=== PATIENT | male | born 1995 | race Caucasian/White ===

== ENCOUNTER 2018-08-13 14:52 | Observation (INO) | payer OTHER ==
[~2018-08-13] VITALS: Ht 175.3 cm; Wt 96.8 kg
[2018-08-13] VITALS (7 sets, daily range): BP systolic 121–135; BP diastolic 60–97
--- NOTE | 2018-08-13 15:23 | ER Report ---
History and Physical Time Seen By MD: 15:00 Hx. of Stated Complaint: RLQ PAIN SINCE LAST NIGHT. HPI/ROS CHIEF COMPLAINT: Abdominal pain HISTORY OF PRESENT ILLNESS: Otherwise healthy 23-year-old male comes emergency times a day with 1 day of right lower quadrant pain sharp stabbing localized right at McBurney's point patient is unable to eat he is not hungry's nausea without vomiting denies any upper epigastric discomfort. Patient has no surgical history this time. Patient states the pain is constant sharp and stabbing really no loosening alleviating factors no additional complaints noted REVIEW OF SYSTEMS: Respiratory: No cough, no dyspnea. Cardiovascular: No chest pain, no palpitations. Gastrointestinal: Abdominal pain right lower quadrant nausea no vomiting Musculoskeletal: No back pain. Remainder of the 14 system rev: Yes Allergies: Coded Allergies: amoxicillin (Verified Allergy, Unknown, 08/13/18) Home Meds Unable to Obtain Active Prescriptions or Reported Meds Reviewed Nurses Notes: Yes Old Medical Records Reviewed: Yes Constitutional Vital Sign - Last 24 Hours 08/13/18 14:57 Temp 98.1 Pulse 71 Resp 20 B/P (MAP) 162/84 Pulse Ox 95 O2 Delivery Room Air Physical Exam General Appearance: The patient is alert, has no immediate need for airway protection and no current signs of toxicity. [ ] Eyes: Pupils equal and round no injection. Respiratory: Chest is non tender, lungs are clear to auscultation. Cardiac: regular rate and rhythm [ ] Gastrointestinal: Abdomen tender to right lower quadrant deep palpation positive McBurney sign no rebound or guarding no masses normal bowel sounds Musculoskeletal: Neck: Neck is supple and non tender. Extremities have full range of motion and are non tender. Skin: No rashes or lesions. [ ] DIFFERENTIAL DIAGNOSIS: After history and physical exam differential diagnosis was considered for acute appendicitis antritis gastroenteritis colitis Medical Decision Making Data Points Result Diagram: 08/13/18 1508 08/13/18 1508 Laboratory Hematology Test 08/13/18 15:08 08/13/18 15:15 Red Blood Count 5.58 M/uL (4.00-5.60) Mean Corpuscular Volume 83.3 fL (80.0-96.0) Mean Corpuscular Hemoglobin 28.2 pg (26.0-33.0) Mean Corpuscular Hemoglobin Concent 33.9 g/dL (32.0-36.0) Red Cell Distribution Width 13.2 % (11.5-14.5) Mean Platelet Volume 8.1 fL (7.2-11.1) Neutrophils (%) (Auto) 72.2 % (39.4-72.5) Lymphocytes (%) (Auto) 15.6 % (17.6-49.6) Monocytes (%) (Auto) 9.8 % (4.1-12.4) Eosinophils (%) (Auto) 1.8 % (0.4-6.7) Basophils (%) (Auto) 0.6 % (0.3-1.4) Nucleated RBC Relative Count (auto) 0.0 /100WBC Neutrophils # (Auto) 9.1 K/uL (2.0-7.4) Lymphocytes # (Auto) 2.0 K/uL (1.3-3.6) Monocytes # (Auto) 1.2 K/uL (0.3-1.0) Eosinophils # (Auto) 0.2 K/uL (0.0-0.5) Basophils # (Auto) 0.1 K/uL (0.0-0.1) Nucleated RBC Absolute Count (auto) 0.01 K/uL Prothrombin Time 13.2 seconds (12.0-14.4) Prothromb Time International Ratio 1.00 Activated Partial Thromboplast Time 31 seconds (23-35) Sodium Level 137 mmol/L (137-145) Potassium Level 3.5 mmol/L (3.5-5.0) Chloride Level 103 mmol/L (98-107) Carbon Dioxide Level 22 mmol/L (22-30) Blood Urea Nitrogen 10 mg/dl (9-21) Creatinine 1.10 mg/dl (0.66-1.25) Glomerular Filtration Rate Calc > 60.0 Random Glucose 102 mg/dl (75-110) Calcium Level 9.4 mg/dl (8.4-10.2) Total Bilirubin 0.7 mg/dl (0.2-1.3) Aspartate Amino Transf (AST/SGOT) 28 U/L (0-35) Alanine Aminotransferase (ALT/SGPT) 39 U/L (0-56) Alkaline Phosphatase 102 U/L (0-126) Total Protein 8.3 g/dl (6.3-8.2) Albumin 4.9 g/dl (3.5-5.0) Urine Color Yellow Urine Clarity Clear Urine pH 6.0 pH (4.8-9.5) Urine Specific [place] 1.018 Urine Protein Negative mg/dL (NEGATIVE) Urine Glucose (UA) Negative mg/dL (NEGATIVE) Urine Ketones 20 mg/dL (NEGATIVE) Urine Blood Negative (NEGATIVE) Urine Nitrite Negative (NEGATIVE) Urine Bilirubin Negative (NEGATIVE) Urine Urobilinogen Negative mg/dL (0.2-1.9) Urine Leukocyte Esterase Negative (NEGATIVE) Urine RBC None /HPF (0-2/HPF) Urine WBC <1 /HPF (0-5/HPF) Urine Squamous Epithelial Cells None /LPF (</=FEW) Urine Bacteria Negative /HPF (NONE-FEW) Urine Mucus None /HPF (NONE-FEW) Chemistry Test 08/13/18 15:08 08/13/18 15:15 White Blood Count 12.6 k/uL (4.5-11.0) Red Blood Count 5.58 M/uL (4.00-5.60) Hemoglobin 15.8 g/dL (14.0-18.0) Hematocrit 46.5 % (42.0-52.0) Mean Corpuscular Volume 83.3 fL (80.0-96.0) Mean Corpuscular Hemoglobin 28.2 pg (26.0-33.0) Mean Corpuscular Hemoglobin Concent 33.9 g/dL (32.0-36.0) Red Cell Distribution Width 13.2 % (11.5-14.5) Platelet Count 245 K/uL (150-450) Mean Platelet Volume 8.1 fL (7.2-11.1) Neutrophils (%) (Auto) 72.2 % (39.4-72.5) Lymphocytes (%) (Auto) 15.6 % (17.6-49.6) Monocytes (%) (Auto) 9.8 % (4.1-12.4) Eosinophils (%) (Auto) 1.8 % (0.4-6.7) Basophils (%) (Auto) 0.6 % (0.3-1.4) Nucleated RBC Relative Count (auto) 0.0 /100WBC Neutrophils # (Auto) 9.1 K/uL (2.0-7.4) Lymphocytes # (Auto) 2.0 K/uL (1.3-3.6) Monocytes # (Auto) 1.2 K/uL (0.3-1.0) Eosinophils # (Auto) 0.2 K/uL (0.0-0.5) Basophils # (Auto) 0.1 K/uL (0.0-0.1) Nucleated RBC Absolute Count (auto) 0.01 K/uL Prothrombin Time 13.2 seconds (12.0-14.4) Prothromb Time International Ratio 1.00 Activated Partial Thromboplast Time 31 seconds (23-35) Glomerular Filtration Rate Calc > 60.0 Calcium Level 9.4 mg/dl (8.4-10.2) Total Bilirubin 0.7 mg/dl (0.2-1.3) Aspartate Amino Transf (AST/SGOT) 28 U/L (0-35) Alanine Aminotransferase (ALT/SGPT) 39 U/L (0-56) Alkaline Phosphatase 102 U/L (0-126) Total Protein 8.3 g/dl (6.3-8.2) Albumin 4.9 g/dl (3.5-5.0) Urine Color Yellow Urine Clarity Clear Urine pH 6.0 pH (4.8-9.5) Urine Specific [place] 1.018 Urine Protein Negative mg/dL (NEGATIVE) Urine Glucose (UA) Negative mg/dL (NEGATIVE) Urine Ketones 20 mg/dL (NEGATIVE) Urine Blood Negative (NEGATIVE) Urine Nitrite Negative (NEGATIVE) Urine Bilirubin Negative (NEGATIVE) Urine Urobilinogen Negative mg/dL (0.2-1.9) Urine Leukocyte Esterase Negative (NEGATIVE) Urine RBC None /HPF (0-2/HPF) Urine WBC <1 /HPF (0-5/HPF) Urine Squamous Epithelial Cells None /LPF (</=FEW) Urine Bacteria Negative /HPF (NONE-FEW) Urine Mucus None /HPF (NONE-FEW) Coagulation Test 08/13/18 15:08 Prothrombin Time 13.2 seconds Prothromb Time International Ratio 1.00 Activated Partial Thromboplast Time 31 seconds Urinalysis Test 08/13/18 15:15 Urine Color Yellow Urine Clarity Clear Urine pH 6.0 pH (4.8-9.5) Urine Specific [place] 1.018 Urine Protein Negative mg/dL (NEGATIVE) Urine Glucose (UA) Negative mg/dL (NEGATIVE) Urine Ketones 20 mg/dL (NEGATIVE) Urine Blood Negative (NEGATIVE) Urine Nitrite Negative (NEGATIVE) Urine Bilirubin Negative (NEGATIVE) Urine Urobilinogen Negative mg/dL (0.2-1.9) Urine Leukocyte Esterase Negative (NEGATIVE) Urine RBC None /HPF (0-2/HPF) Urine WBC <1 /HPF (0-5/HPF) Urine Squamous Epithelial Cells None /LPF (</=FEW) Urine Bacteria Negative /HPF (NONE-FEW) Urine Mucus None /HPF (NONE-FEW) ED Course/Re-evaluation ED Course ED course 23-year-old male comes in with acute right lower quadrant pain CT scan confirms acute appendicitis surgical consult performed patient be admitted Decision to Disposition Date: Aug 13, 2018 Decision to Disposition Time: 16:39 Depart Departure Latest Vital Signs Vital Signs Date Time Temp Pulse Resp B/P (MAP) Pulse Ox O2 Delivery O2 Flow Rate FiO2 08/13/18 14:57 98.1 71 20 162/84 95 Room Air Impression: Primary Impression: Acute appendicitis Condition: Improved Disposition: Admitted from ER New Scripts Unable to Obtain Active Prescriptions or Reported Meds HIRAM PAEZ MD Aug 13, 2018 15:23
[2018-08-13 15:26] LABS: PLATELET COUNT, AUTOMATED 245 K/uL (150-450)
[2018-08-13] MEDS ORDERED: IOPAMIDOL 76% 150 ML INFUS BTL 150 ML ONE (15:29)
--- NOTE | 2018-08-13 16:28 | RADIOLOGY IMAGING REPORT ---
FACILITY: [facility] [place] PATIENT NAME: Baltazar Merino : 1995 MR: [id number] V: [id number] EXAM DATE: ORDERING PHYSICIAN: HIRAM PAEZ TECHNOLOGIST: Location: [facility] Patient: Baltazar Merino : 1995 Visit/Account:[id number] Date of Sevice: 08/13/2018 COMPUTED TOMOGRAPHY OF THE Abdomen and Pelvis with CONTRAST INDICATION: Right lower quadrant abdominal pain. TECHNIQUE: Contiguous axial 3.[address] images were obtained through the abdomen and pelvis after 75 m L [id number]. Coronal and sagittal reformatted images were submitted. COMPARISON: None. FINDINGS: Lung bases: The lung bases are clear Liver and hepatic vasculature: No focal lesion. Gallbladder and bile ducts: Normal Spleen: Normal. There are a few small splenules near the splenic hilum. Pancreas: Normal Adrenals: Normal Kidneys, ureters and bladder: Normal kidneys. Decompressed bladder. Retroperitoneum and aorta: Normal GI tract, mesentery and peritoneum: The appendix is markedly dilated measuring 1.6 cm diameter with a thickened and edematous wall. There is moderate surrounding inflammation. A fecalith is present ne ar the appendiceal base. No perforation or abscess. Prostate: Unremarkable Bones and soft tissues: No acute osseous abnormality. IMPRESSION: 1. Appendicitis. The appendix measures 1.6 cm with moderate surrounding inflammation, wall thickeni ng, and an appendicolith near the appendiceal base. No perforation or abscess. Results were called to Dr. HIRAM PAEZ at 08/13/2018 4:10 PM. One of the following dose optimization techniques was utilized in the performance of this exam: Autom ated exposure control; adjustment of the mA and/or kV according to the patient's size; or use of an i terative reconstruction technique. Specific details can be referenced in the facility's radiology C T exam operational policy. Report Dictated By: Vinod Koch MD at 08/13/2018 4:03 PM Report E-Signed By: Vinod Koch MD at 08/13/2018 4:23 PM [id number]
[2018-08-13] MEDS ORDERED: NS(*) 0.9% 1000 ML BAG 1,000 ML IV ONE (16:30)
[2018-08-13] MEDS ORDERED: ONDANSETRON 4 MG/2 ML VIAL IVP ONE (16:30)
--- NOTE | 2018-08-13 17:00 | Gen Surgery History & Physical ---
History of Present Illness Chief Complaint rlq pain History of Present Illness 23 yo m with rlq pain since 1999 last night. pain is worsening. +vomiting. feels hot. no acute blood per rectum. pmh/psh: urology procedure as a child (opened meatus) fam hx: dm, cad, copd social hx: occasional etoh and cigs History Home Meds Unable to Obtain Active Prescriptions or Reported Meds Allergies: Coded Allergies: amoxicillin (Verified Allergy, Unknown, 08/13/18) Review of Systems Constitutional: Other (10 pt ros neg except per hpi) Exam General Appearance: Alert, Awake, No Acute Distress Neuro: No Gross deficits Eyes: Other (per, eomi) ENT: Moist Mucous Membranes Neck: No Masses Cardiovascular: Other Respiratory: No Respiratory Distress GI: Other (soft, rlq ttp) Extremities: Other (no pitting edema) Integumentary: Skin Intact without Lesion / Mass Psych: Alert & Oriented X3, Appropriate Mood & Affect Medical Decision Making Data Points Result Diagram: 08/13/18 1508 08/13/18 1508 Assessment and Plan Problems: (1) Acute appendicitis Status: Acute Assessment & Plan: 08/13/18: npo, abx, lap appy Venous Thromboembolism Antithrombotics Is Pt On Any Antithrombotics?: No TREVON WRIGHT Aug 13, 2018 17:00
[2018-08-13] MEDS ORDERED: BUPIVACAINE/EPI 0.5% 50ML VIAL INFIL ONE (17:14)
[2018-08-13] MEDS ORDERED: NS(*) 0.9% 1000 ML BAG 1,000 ML IV PRN (17:15)
[2018-08-13] MEDS ORDERED: ONDANSETRON 4 MG/2 ML VIAL IVP PRN (17:15)
[2018-08-13] MEDS ORDERED: FAMOTIDINE(*) 20MG/50ML PREMIX 50 ML IVPB ONE (17:15)
[2018-08-13] MEDS: HYDROmorphone HCL 2 MG/ML SDV IVP PRN ×2 (17:31→18:59)
[2018-08-13] MEDS ORDERED: fentaNYL CITR 100 MCG/2 ML AMP ONE ×2 (17:57→21:42)
[2018-08-13] MEDS ORDERED: KETAMINE HCL 200 MG/20 ML MDV ONE ×2 (17:59)
[2018-08-13] MEDS ORDERED: ROCURONIUM BROM 10 MG/ML 10 ML ONE ×2 (17:59→18:01)
[2018-08-13] MEDS ORDERED: LIDOCAINE MPF 1% 5 ML VIAL ONE (17:59)
[2018-08-13] MEDS ORDERED: DEXAMETHASONE SOD PHOS 10MG/ML ONE (17:59)
[2018-08-13] MEDS ORDERED: PROPOFOL EMUL(*) 10MG/ML 20 ML 20 ML ONE (17:59)
[2018-08-13] MEDS ORDERED: ONDANSETRON 4 MG/2 ML VIAL ONE (17:59)
[2018-08-13] MEDS ORDERED: NORMOSOL R SOLN(*) 1000 ML BAG 1,000 ML IV ONE ×2 (19:30→22:25)
[2018-08-13] MEDS ORDERED: metroNIDAZOLE* 500MG/100ML BAG 100 ML IVPB ONE (19:50)
[2018-08-13] MEDS ORDERED: LEVOFLOXACIN 750 MG TAB PO ONE (19:55)
[2018-08-13] MEDS ORDERED: LEVOFLOXACIN/D5W 750 MG/150 ML 150 ML IVPB ONE (19:55)
[2018-08-13] MEDS ORDERED: MIDAZOLAM 2 MG/2 ML VIAL IVP PRN (20:00)
[2018-08-13] MEDS ORDERED: SUGAMMADEX SOD 500 MG/5 ML SDV ONE (21:04)
--- NOTE | 2018-08-13 21:29 | Post Operative Progress Note ---
Post Operative Progress Note Date: Aug 13, 2018 Time: 21:25 Surgeon: dr. marcel haas #[id number] Port Surveyor: none Anesthesia: gen, local dr. joy Pre-Op Diagnosis: acute appendicitis Post-Op Diagnosis: same Findings: acute appendicitis Procedure(s): lap appy Specimen Removed:(May be N/A): appendix Complications: none Fluids: iv crystalloid Estimated Blood Loss: minimal Date OP Note Dictated: Aug 13, 2018 Time OP Note Dictated: 21:26 TREVON HAAS Aug 13, 2018 21:29
[2018-08-13] MEDS ORDERED: PROMETHAZINE 25 MG/ML 1 ML AMP ONE (21:49)
[2018-08-14] VITALS (9 sets, daily range): BP systolic 113–140; BP diastolic 61–70
[2018-08-14] MEDS: APAP/HYDROCODONE 325/7.5 TAB PO PRN ×3 (02:42→11:48)
--- NOTE | 2018-08-14 04:18 | OPERATIVE REPORT 1 ---
EVENT DATE: August 13, 2018 SURGEON: Curt Mccall MD ANESTHESIOLOGIST: Tyshawn Jordan DO ANESTHESIA: General and local. DEALER RELATIONSHIP MANAGER: None. PREOPERATIVE DIAGNOSIS Acute appendicitis. POSTOPERATIVE DIAGNOSIS Acute appendicitis. PROCEDURE PERFORMED Laparoscopic appendectomy. FLUIDS IV crystalloid. ESTIMATED BLOOD LOSS Minimal. SPECIMENS Appendix. COMPLICATIONS None. INDICATIONS This is a 23-year-old male with right lower quadrant pain beginning last night. On physical exam, patient was tender to palpation in the right lower quadrant. He was stable. Imaging was consistent with acute appendicitis. Risks and benefits of the procedure were explained, and consent was signed. DESCRIPTION OF PROCEDURE Patient was taken to the operating room and placed in the supine position. General anesthesia was administered per anesthesia team. Patient was prepped and draped in normal sterile fashion. Local analgesia was injected in the dermis above the umbilicus, and a 5 mm vertical incision was made. The umbilical stump was grasped and elevated. A Veress needle was inserted. Pneumoperitoneum was achieved. The Veress needle was removed. A 5 mm port was advanced. After injecting local analgesia, and under direct vision, a 5 mm suprapubic port and a 12 mm left lower quadrant port were placed. I inspected the abdomen. There was no injury upon entry. The appendix was quickly identified. It was inflamed, consistent with acute appendicitis. Small bowel was peeled away easily from the appendix. A window was created in the mesoappendix at the base of the appendix, and a laparoscopic 45 mm linear stapler was fired across the base of the appendix. LigaSure was used to divide the mesoappendix. The appendix was removed with an Endo Catch bag through the left lower quadrant port site. Right lower quadrant was irrigated and suctioned. Irrigant returned clear. Hemostasis was assured. Staple line was confirmed to dashawn intact. A fascial closure device with an 0 Vicryl stitch was used to close the fascia of the left lower quadrant port site. Suprapubic port was removed under direct vision. Hemostasis was assured. Pneumoperitoneum was released. Supraumbilical port was removed. All skin incisions were closed with 4-0 Monocryl subcuticular stitches. More local analgesia was injected. Appropriate dressings were applied. Patient tolerated the procedure well. There were no complications. MTDD
--- NOTE | 2018-08-14 07:25 | General Surgery Progress Note ---
Subjective Progress Notes Subjective doing well. some pain at [facility] Physical Exam Vital Signs Date Time Temp Pulse Resp B/P (MAP) Pulse Ox O2 Delivery O2 Flow Rate FiO2 08/14/18 06:00 98.6 61 140/68 (92) 98 Room Air 08/14/18 05:00 1.0 08/13/18 22:40 16 Intake and Output 08/14/18 07:00 Intake Total 3000 ml Output Total 400 ml Balance 2600 ml Intake Oral 700 ml IV Total 1300 ml Other 1000 ml Output Emesis 400 ml # Voids 3 # Emeses 1 General Appearance: No Acute Distress Cardiovascular: Other (reg rate) GI: Other (abd soft) Result Diagram: 08/13/18 1508 08/13/18 1508 Assessment and Plan Problems: (1) Acute appendicitis Status: Acute Assessment & Plan: 08/13/18: npo, abx, lap appy 08/14/18: s/p lap appy. doing well. reg diet. ambulate. home today. Exam Sepsis Risk: No Definite Risk TREVON WRIGHT Aug 14, 2018 07:25
[2018-08-14] MEDS ORDERED: ENOXAPARIN 40 MG/0.4ML SYR SC SCH (09:00)
[2018-08-14] MEDS ORDERED: HYDR-653 PO (12:27)
--- NOTE | 2018-08-14 13:17 | Hospitalist Depart ---
Discharge Summary Reason for Hosp/Final Diag: (1) Acute appendicitis Status: Acute Hospital Course & Plan: 08/13/18: npo, abx, lap appy 08/14/18: s/p lap appy. doing well. reg diet. ambulate. home today. Departure Weight (Pounds): 213 Weight (Ounces): 8.0 Result Diagram: 08/13/18 1508 08/13/18 1508 Condition: Improved Discharge: Home Discharge Instructions Home Meds Active Scripts Hydrocodone Bit/Acetaminophen (NORCO 5-325 TABLET) 1 Each Tablet, 1 EACH PO Q6H PRN for PAIN, #20 TAB Prov:TREVON HAAS 08/14/18 Diet: Regular Activity: No Heavy Lifting Special Instructions: no lifting more than 15 lbs for 3 wks ok to shower follow up dr. lorne haas 2 wks ([phone]) take stool softener while taking pain meds Venous Thromboembolism Antithrombotics Is Pt On Any Antithrombotics?: No TREVON HAAS Aug 14, 2018 13:17
== END 2018-08-14 13:15 | disposition home or self-care (01) ==
LOC: ER 15:07 → INTOOBSV 16:45 → MED 16:45
PROVIDERS: ADMIT Surgery; ATTEND Surgery
DX: K35.80 Unspecified acute appendicitis (principal)
CPT/HCPCS: 44970; 74177; 81001; 85025; 85610; 85730; 88304; 96372; 96374; 99284; G0378; J1100; J1170; J1650; J1956; J2001; J2405; J2550; J2704; J3010; J3490; J7030; Q9967; 82040; 82247; 82310; 82374; 82435; 82565; 82947; 84075; 84132; 84155; 84295; 84450; 84460; 84520